=== PATIENT | male | born 1945 | race Caucasian/White ===

== ENCOUNTER 2025-06-13 09:24 | Outpatient (REF) | payer MEDICARE, SELFPAY ==
--- NOTE | ~2025-06-13 | XR_ITS ---
EXAMINATION: XR KNEE, RIGHT CLINICAL INFORMATION: M25.561 - Pain in right knee COMPARISON: None available. TECHNIQUE: Three views of the right knee. FINDINGS: No fracture, dislocation, or suspicious bone lesion. There is normal alignment. Moderate medial and mild lateral joint space narrowing with marginal osteophytic spurring, and more severe changes in the patellofemoral joint. [id number] appearance of the lateral patellar facet. There is subtle chondrocalcinosis present in the medial and lateral compartments. There is no evidence of significant joint effusion. There is no soft tissue abnormality. XR/XR knee RT 3V IMPRESSION: 1. No acute bony abnormalities of the right knee. 2. Tricompartmental arthritis, severe in the patellofemoral compartment, and moderate in the medial compartment. 3. Subtle chondrocalcinosis present. Electronically signed by: Albert Crowe MD 06/13/2025 01:05 PM EDT
== END 2025-06-13 09:25 | disposition home or self-care (01) ==
LOC: HO.HOSX 09:24
PROVIDERS: Visit Provider Orthopaedic Surgery
DX: M17.11 Unilateral primary osteoarthritis, right knee (principal)
CPT/HCPCS: 73562; 99202

== ENCOUNTER 2025-06-13 12:36 | Outpatient (AMB) | payer MEDICARE, SELFPAY ==
--- NOTE | 2025-06-13 12:57 | MHC.OFFVIS ---
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 He describes his pain as sharp in nature. His pain has gotten worse over the last few years in spite of continued non operative treatments. He has had cortisone injections in the past which gave him no relief. He has not had a viscosupplementation injection. At this point his right knee pain is interfering with his activities of daily living and his ability to sleep well through the night. He has failed the last 3 months of conservative treatment which has included Tylenol, anti-inflammatory medicines, a knee brace, and physical therapy. He wishes to hold off on surgery if at all possible. Allergies No Known Allergies Allergy (Verified 06/13/25 13:02) Medication List - Last Reconciled 06/13/25 by Julian Brothers MD No Known Home Meds FORMERLY [facility], [facility]1983 Surgical History (Updated 06/13/25 @ 13:02 by SOLOMON Blair) History of cataract surgery Social History (Updated 06/13/25 @ 13:02 by SOLOMON Blair) Current occupational status: retired Physical Exam Vital Signs: BMI result Body Mass Index 20.5 Const Other: Well-nourished well-developed very friendly male awake alert and oriented x3 in no acute distress Extrem Other: Right knee examination shows a minimal effusion, palpable crepitus with range of motion, pain with range of motion, range of motion from -3 degrees to 115 degrees, no instability Results Reviewed Results Reviewed: X-rays of the patient's right knee show joint space narrowing, subchondral sclerosis, no acute bony abnormalities Assessment & Plan Assessment & Plan (1) Osteoarthritis of right knee: Code(s): M17.11 - Unilateral primary osteoarthritis, right knee Category: Medical Plan Mr. Muñoz presents with right knee pain due to osteoarthritis. I had a lengthy discussion with the patient regarding the treatment options. He wishes to hold off on surgery if at all possible. I agree with this plan. I will see if the patient's insurance company will cover a viscosupplementation injection, such as Durolane, for his right knee. I will see him back once the injection is available. He will contact me prior to that time should any questions or concerns arise. I spent 22 minutes in reviewing the patient's records and imaging studies, seeing the patient and documenting in the medical record. Orders: Orders XR knee RT 3V Today M25.561 - Pain in right knee Coding Level of Care Code New Pt Level 3 (95214) Complex EM visit Add On G2211 Diagnoses Osteoarthritis of right knee M17.11
[2025-06-13 13:04] VITALS: BMI 20.5
== END 2025-06-13 13:14 | disposition home or self-care (01) ==
LOC: HO.HOS 12:37
PROVIDERS: Visit Provider Orthopaedic Surgery
DX: M17.11 Unilateral primary osteoarthritis, right knee (principal)
CPT/HCPCS: 99203; G2211

== ENCOUNTER → 2025-06-13 12:44 | Outpatient (BNV) | payer MEDICARE, SELFPAY | PROVIDERS: Visit Provider Radiology Diagnostic Radiology | DX: M17.11 Unilateral primary osteoarthritis, right knee (principal); M11.261 Other chondrocalcinosis, right knee | CPT/HCPCS: 73562 ==

== ENCOUNTER 2025-07-17 13:35 | Outpatient (AMB) | payer MEDICARE, SELFPAY ==
--- NOTE | 2025-07-17 13:44 | A.OFFVIS_ITS ---
Intake Visit Reasons: Inj-right knee durolane injection Intake Note: Alvaro is a 80 year old male who presents with complaints of progressively worsening right knee pain. He describes his pain as sharp in nature. His pain has gotten worse over the last few years in spite of continued non operative treatments. He has had cortisone injections in the past which gave him no relief. He has not had a viscosupplementation injection. At this point his right knee pain is interfering with his activities of daily living and his ability to sleep well through the night. He has failed the last 3 months of conservative treatment which has included Tylenol, anti-inflammatory medicines, a knee brace, and physical therapy. He wishes to hold off on surgery if at all possible. Allergies No Known Allergies Allergy (Verified 06/13/25 13:02) Medication List - Last Reconciled 07/17/25 by Julian Brothers MD No Known Home Meds [facility] Surgical History (Updated 06/13/25 @ 13:02 by SOLOMON Blair) History of cataract surgery Social History (Updated 06/13/25 @ 13:02 by SOLOMON Blair) Current occupational status: retired Physical Exam Const Other: Well-nourished well-developed very friendly male awake alert and oriented x3 in no acute distress Extrem Other: Right knee examination shows a minimal effusion, palpable crepitus with range of motion, pain with range of motion, no instability Office Procedures AMB Joint Injection/Aspiration Joint Injection/Aspiration Primary Site: right knee Prep: site was prepped using aseptic technique Injected: 60 mg of (Durolane viscosupplementation), with 4 mL of and 1% plain lidocaine Procedure: The patient tolerated the procedure well Coding 80595 - Large joint Procedure code (CPT) selection complete Results Reviewed Results Reviewed: X-rays of the patient's right knee taken previously show joint space narrowing, subchondral sclerosis, no acute bony abnormalities Assessment & Plan Assessment & Plan (1) Osteoarthritis of right knee: Code(s): M17.11 - Unilateral primary osteoarthritis, right knee Category: Medical Plan Mr. Muñoz presents with right knee pain due to osteoarthritis. I had a lengthy discussion with the patient regarding the treatment options. He wishes to hold off on surgery if at all possible. I agree with this plan. The risks and benefits of a right knee Durolane viscosupplementation injection were discussed at length with the patient. The patient wished to proceed. He tolerated the injection well. He will continue with his home exercise program. He will contact me prior to his follow-up appointment in 3 months should any questions or concerns arise. Feel free to call me at any time should questions regarding his orthopedic management arise. I spent 22 minutes in reviewing the patient's records and imaging studies, seeing the patient and documenting in the medical record. Orders: Orders AMB Joint Injection/Aspiration Today M17.11 - Unilateral primary osteoarthritis, right knee Coding Level of Care Code Est Pt Level 3 (59802) Complex EM visit Add On G2211 Diagnoses Osteoarthritis of right knee M17.11 CPT Codes Coding - 48106 Large joint: 04587 - Large joint ([id number])
--- OUTSIDE RECORDS SUMMARY | 2025-07-17 17:38 | XMS_ITS | Data Portability ---
Author Organization [facility] [address] Address [address] [place] [address] Care Team Providers Care Utility Tech Name Role Phone [facility] Primary Care Provider Assessment No assessment recorded. Plan of Treatment Reminders Order Date Submit Date Provider Last Modified By Organization Details Last Modified Time Details Appointments None recorded. Lab None recorded. Referral None recorded. Procedures cerumen removal using irrigation (PROC) 2022 023 [email or web address] Not available 18:58:11 Surgeries None recorded. Imaging None recorded. Medication Orders amoxicillin 875 mg-potassiu m clavulanate 125 mg tablet 2022 023 [email or web address] [id number], [address] , [place], [address], 12:25:12 Patient TargetsNo targets recorded. Patient Instructions Encounter Date Encounter Id Patient Instructions Last Modified By Organization Details Last Modified Time 05/24/2023 [id number] Acute Sinusitis: Care Instructions [email or web address] Not available 05/24/2023 09:05:52 Reason for Referral None Reported. Problems No Known Problems Procedures Surgical History Date Name Laterality Status Provider Name and Address Organization Details Recorded Time 05/24/20 23 Cerumen Removal by Irrigation completed ZEHRA RÍOS - [facility] 05/24/2023 08:57:14 05/24/20 23 Provider Post-Irrigation Documentation completed Reta Kinney NP [address] [place], [address], [facility] Tomlinson [facility] 05/24/2023 09:06:53 Xcapsl ctrc rmvl cplx wo ecp completed ZEHRA DEL CID PA - [facility] 05/24/2023 08:17:36 Imaging Results None recorded. Procedure Notes None recorded. Medical Equipment None Reported. Allergies Allergen ID Allergen Name Allergen Category Reaction Reaction Severity Criticality Documentation Date Start Date Code Code System Note Provider Name and Address Organization Details Recorded Time 075955 grass pollen environme nt,medica tion Not available Not available Not available 05/24/2023 ZEHRA justice PA - [facility] 3 08:16:50 Medications Name Sig Start Date Stop Date Status Note LastModified by Organization Details LastModified Time amoxicillin 875 mg-potassium clavulanate 125 mg tablet Take 1 tablet every 12 hours by oral route for 7 days. 2022 active Not Available Not Available Not Avai lable multivitamin active Not Available Not Available Not Available aspirin 81 mg capsule Take 1 capsule every day by oral route. active Not Available Not Available No t Available Vitals Date Recorded Body height Body mass index (BMI) Body weight Pain severity - 0-10 verbal numeric rating [Score] - Reported Body temperature Respiratory rate Heart rate Oxygen saturation Oxygen saturation in Arterial blood by Pulse oximetry Systolic And Diastolic Provider Name and Address Organization Details Last Updated DateTime 3 187.96 cm 27 kg/m2 65287.4 g 4 98.3 [degF] 16 /min 66 /min 99 % 99 % 130/78 mm[Hg] ZEHRA DEL CID PA - [facility] 3 08:20:59 Social History Question Answer Notes LastModified by Colabo Details LastModified Time Tobacco Smoking Status Never Smoker ZEHRA justice PA - [facility] 05/24/2023 08:17:51 Have You Recently Traveled Abroad? No Information not available 05/24/2023 Sex: Unknown Functional Status Question Answer Note LastModified by Colabo Details LastModified Time Do you use any illicit or recreational drugs? No Information not available 05/24/2023 Do you or have you ever used any other forms of tobacco or nicotine? No Information not available 05/24/2023 Mental Status None recorded. Family History Relationship Description Onset Age of this Age Resolved Age Notes LastModified by Organization Details LastModified Time Father No current problems or disability [email or web address] Not available 12/2022 08:18:01 Mother No current problems or disability [email or web address] Not available 12/2022 08:18:01 Medical History No medical history recorded. Immunizations Vaccine Type Date Status Note Provider Nam e and Address Organization Details Recorded Time Influenza, high-dose, quadrivalent, PF 06/10/2020 completed ZEHRA DRINKWINE null, PA - [facility] 05/24/2023 08:16:34 Influenza, high-dose, quadrivalent, PF 07/03/2022 completed ZEHRA DRINKWINE null, PA - [facility] 05/24/2023 08:16:34 Influenza, high-dose, quadrivalent, PF 07/09/2021 completed ZEHRA DRINKWINE null, PA - [facility] 05/24/2023 08:16:34 COVID-19, mRNA, LNP-S, PF, 100 mcg/0.5mL dose or 50 mcg/0.25mL dose 12/06/2020 completed ZEHRA DRINKWINE null, PA - [facility] 05/24/2023 08:16:34 COVID-19, mRNA, LNP-S, PF, 100 mcg/0.5mL dose or 50 mcg/0.25mL dose 01/03/2021 completed ZEHRA DRINKWINE null, PA - [facility] 05/24/2023 08:16:34 COVID-19, mRNA, LNP-S, PF, 100 mcg/0.5mL dose or 50 mcg/0.25mL dose 08/06/2021 completed ZEHRA DRINKWINE null, PA - [facility] 05/24/2023 08:16:34 COVID-19, mRNA, LNP-S, bivalent, PF, 50 mcg/0.5 mL or 25mcg/0.25 mL dose 07/24/2022 completed ZEHRA DRINKWINE null, PA - [facility] 05/24/2023 08:16:34 Influenza, high-dose, trivalent, PF 06/29/2018 completed ZEHRA DRINKWINE null, PA - [facility] 05/24/2023 08:16:34 Influenza, high-dose, trivalent, PF 07/08/2016 completed ZEHRA DRINKWINE null, PA - [facility] 05/24/2023 08:16:34 Influenza, high-dose, trivalent, PF 07/27/2017 completed ZEHRA DRINKWINE null, PA - [facility] 05/24/2023 08:16:34 Influenza, split virus, trivalent, PF 07/09/2015 completed ZEHRA DRINKWINE null, PA - [facility] 05/24/2023 08:16:34 Past Encounters Encounter ID Performer Location Encounter Start Date Encounter Closed Date Diagnosis/Indication Diagnosis SNOMED-CT Code Diagnosis ICD10 Code Diagnosis IMO Codes Diagnosis Note [id number] [address] [place] [address] 05/15/2020 15:20:46 05/15/2020 16:34:08 [id number] Reta Kinney NP [address] [facility] [place] [address] 05/24/2023 08:02:55 05/24/2023 09:06:15 Acute sinusitis 87983651 J01.90 Based on your presentati on and exam, you are diagnosed with ACUTE SUNUSITIS My suggestion s for this condition include:1. continue with the sinus rinse2. Elevate your head on a pillow when in bed if not contraindi cated3. Rest,4. Stay hydrated5. Take Ibuprofen or Tylenol if you do not have any allergies to these medication s. If you take a blood thinner you should not take NSAIDS like Ibuprofen. If you are still having pain 1-2 weeks. I would suggest that you follow up with our office again or schedule and appointmen t with your doctor Thank you for using [facility] , please contact our office if you have any questions or concerns. Impacted c erumen of bilateral ears [id number] H61.23 Based on your physical exam and presentati on, you are being diagnosed with cerumen impaction. This occurs when wax builds up in your ear canal We have performed an ear lavage which we hope has relieved your symptoms The following are my recommenda tions to help with these symptoms and get this condition to resolve:1. avoid inserting Qtips in your ear canal2. you may take tylenol as needed for pain , follow instructio ns on the bottle If this does not improve in 2-3 months - an ENT would be the appropriat e next step. Thank you for using [facility] , if you have any questions or concerns please do not hesitate to call or reach out to us. Health Concerns Section Related Observation LastModified by Organization Detai ls LastModified Time None Recorded Concern Status LastModified by Organization Details LastModified Time None Recorded Advance Directives Directive None Recorded Payers Insurance Date Sequence Insurance Name Policy Number Policy Sánchez Covered Member ID Sánchez Member ID Guarantor Name 06/16/2023 1 [employer] (MEDICARE REPLACEMEN T/ADVANTAG E - PPO) [id number] lAvaro Muñoz [id number] Alvaro Muñoz Notes Date Note Type Note Provider Name and Address Organization Details Recorded Time 05/24/2023 text/html Sinus Complaints UCReported by PatientHPIFor location, patient reportssinus pain,facial pain,pain in the cheek, andsinus pressurebut reportsleft side. For associated symptoms, patient reportsnasal discharge from __ nostrils,nasal passage blockage left,ear fullness, andeye itchingbut reportsno fever,no difficulty breathing,no nausea or vomiting,no sore throat,no post nasal drip, andno cough. For quality, patient reportsworsening. For context, patient reportsrecent upper respiratory infectionandworse with environmental exposurebut reportsno recent sick contacts. For alleviating factors, patient reportsnothing gives relief. For onset/timing, patient reportsworse in pm. For severity, patient reportsvariable. For risk factors, patient reportsno current smoking or tobacco use. For prior treatment, patient reportsnasal saline rinseandtopical decongestant.Patient presents with sinus pain and pressure for more than a week . Has hx of multiple sinus infections . has tried many otc meds without relief ears feel blocked left worse than right. Reta Kinney NP [address] [place], [address], [place] - [facility] 05/24/2023 12:25:49
== END 2025-07-17 14:09 | disposition home or self-care (01) ==
LOC: HO.HOS 13:36
PROVIDERS: Visit Provider Orthopaedic Surgery
DX: M17.11 Unilateral primary osteoarthritis, right knee (principal)
CPT/HCPCS: 20610

== ENCOUNTER → 2025-07-17 13:35 | Outpatient (BNVA) | payer MEDICARE, SELFPAY | PROVIDERS: Visit Provider Orthopaedic Surgery | DX: M17.11 Unilateral primary osteoarthritis, right knee (principal) | CPT/HCPCS: 20610; J2003; J7318 ==